=== PATIENT | female | born 1980 | race Caucasian/White ===

== ENCOUNTER → 2020-02-16 | Outpatient (CLI) | payer MEDICARE, OTHER ==
--- NOTE | 2020-02-17 07:57 | US ---
EXAMINATION TYPE: US transvaginal DATE OF EXAM: 02/16/2020 COMPARISON: NONE CLINICAL HISTORY: R10.2 Pelvic and perineal pain. Pain abnormal bleeding. TECHNIQUE: Transvaginal (TV). EXAM MEASUREMENTS: Uterus: 6.4 x 3.1 x cm Endometrial Stripe: .3 cm Right Ovary: 2.8 x 2.2 x 2.4 cm Left Ovary: 3.0 x 2.2 x 1.9 cm 1. Uterus: Anteverted wnl 2. Endometrium: wnl 3. Right Ovary: Follicles seen 4. Left Ovary: Follicles seen. 5. Bilateral Adnexa: wnl 6. Posterior cul-de-sac: wnl Note is made of peripheral based multiple follicles bilaterally. This can be associated with melanoma although not diagnostic of, polycystic ovarian syndrome. IMPRESSION: 1. Normal pelvic ultrasound. 2. Consider polycystic ovarian syndrome potentially within the differential.
== END | disposition home or self-care (01) ==
LOC: RADUSWWP 15:34
PROVIDERS: ATTEND Family Medicine
DX: E28.2 Polycystic ovarian syndrome (principal)
CPT/HCPCS: 76830

== ENCOUNTER → 2021-01-18 | Outpatient (CLI) | payer MEDICARE, OTHER ==
--- NOTE | 2021-01-24 12:21 | MM ---
Reason for exam: screening (asymptomatic). Last mammogram was performed 6 years and 5 months ago. History: Family history of breast cancer in paternal cousin. Took hormonal contraceptives for 7 years. Physical Findings: A clinical breast exam by your physician is recommended on an annual basis and results should be correlated with mammographic findings. MG 3D Screening Mammo W/Cad Bilateral CC and MLO view(s) were taken. Prior study comparison: August 24, 2014, mammogram. There are scattered fibroglandular densities. ASSESSMENT: Benign, BI-RAD 2 RECOMMENDATION: Routine screening mammogram of both breasts in 1 year.
== END | disposition home or self-care (01) ==
LOC: RADMAMWWP 11:25
PROVIDERS: ATTEND Family Medicine
DX: Z12.31 Encounter for screening mammogram for malignant neoplasm of breast (principal); Z80.3 Family history of malignant neoplasm of breast
CPT/HCPCS: 77063; 77067

== ENCOUNTER → 2021-10-02 | Outpatient (CLI) | payer MEDICARE, OTHER ==
--- NOTE | 2021-10-02 14:50 | MR ---
PRE AND POSTCONTRAST ENHANCED MRI OF THE BRAIN: CLINICAL HISTORY: tremors, uncontrolled movement CONTRAST: 10ml gadavist Multiplanar and multispin-echo imaging of the brain was performed both before and after the administr ation of contrast. The ventricles, basal cisterns and sulci overlying the cerebral convexities are within normal limits. There is no evidence for midline shift or mass effect. Acute intracranial hemorrhage or extra-axial collection is not evident. There are no abnormal areas of increased or decreased signal intensity within the brain parenchyma. Following contrast administration, there is no evidence for pathologic enhancement or enhancing mass. The paranasal sinuses and mastoid air cells are well-aerated. IMPRESSION: Unremarkable pre and postcontrast enhanced MRI of the brain.
== END | disposition home or self-care (01) ==
LOC: RADMRIMAIN 13:07
PROVIDERS: ATTEND Psychiatry & Neurology Neurology
DX: C71.9 Malignant neoplasm of brain, unspecified (principal); G40.009 Localization-related (focal) (partial) idiopathic epilepsy and epileptic syndromes with seizures of localized onset, not intractable, without status epilepticus
CPT/HCPCS: 70553; A9585

== ENCOUNTER 2022-10-12 11:00 | Emergency (ER) | payer OTHER, MEDICARE ==
[2022-10-12 11:09] VITALS: BP 136/81; PULSE 80; RESP 20; TEMP 98.3
[2022-10-12] MEDS ORDERED: KETOROLAC 15 MG/ML 1 ML VIAL IM STA (11:19)
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
== END 2022-10-12 13:08 | disposition home or self-care (01) ==
LOC: EC 11:00
DX: M79.601 Pain in right arm (principal); F32.A Depression, unspecified; Z88.8 Allergy status to other drugs, medicaments and biological substances; V43.62XA Car passenger injured in collision with other type car in traffic accident, initial encounter
CPT/HCPCS: 72070; 72050; 72100; 73030; 71045; 99284; 96372; J1885

== ENCOUNTER 2023-06-24 18:03 | Emergency (ER) | payer MEDICARE, OTHER ==
--- NOTE | 2023-06-24 18:43 | ED ---
URI HPI - General Source: patient, RN notes reviewed Mode of arrival: ambulatory Limitations: no limitations <Rita Chavarria - Last Filed: 06/24/23 18:43> - General Source: RN notes reviewed, old records reviewed Mode of arrival: ambulatory Limitations: no limitations - History of Present Illness MD Complaint: fever, cough, nasal congestion, sinus pain -: days(s) Severity: moderate Severity scale (1-10): 4 Consistency: constant Improves With: nothing Worsens With: nothing Context: sick contacts, recent travel Associated Symptoms: fever, chills, myalgias, rhinorrhea, nasal congestion Treatments Prior to Arrival: none <All Hernandez - Last Filed: 06/28/23 18:04> - General Chief Complaint: Upper Respiratory Infection Stated Complaint: Cough, Fever Time Seen by Provider: 06/24/23 18:43 - History of Present Illness Initial Comments: Patient is a 42-year-old female who presents to the emergency department for upper respiratory symptoms (Rita Chavarria) This is a 42-year-old female to the emergency department today for evaluation of cough congestion runny nose not feeling well and fever. Patient has no current chest pain no travel history no sick contacts no leg swelling or edema. (All Hernandez) - Related Data Home Medications Medication Instructions Recorded Confirmed Citalopram Hydrobromide [CeleXA] 20 mg PO HS 03/01/14 03/03/14 HYDROmorphone HCL [Dilaudid] 4 mg PO BID PRN 03/01/14 03/01/14 Loratadine [Claritin] 10 mg PO DAILY 03/01/14 03/01/14 Montelukast [Singulair] 10 mg PO HS 03/01/14 03/03/14 Ranitidine HCl [Zantac] 150 mg PO DAILY 03/01/14 03/03/14 Tolterodine ER [Detrol LA] 4 mg PO ONCE 03/01/14 03/03/14 norethindrone ac-eth estradioL 1 tab PO HS 03/01/14 03/03/14 [Microgestin] Allergies Allergy/AdvReac Type Severity Reaction Status Date / Time venlafaxine HCl Allergy Rash/Hives Verified 06/24/23 18:40 [From Effexor] amitriptyline HCl AdvReac states med Verified 06/24/23 18:40 [From Elavil] contributed to left leg amputation diphenhydramine HCl AdvReac Rapid Verified 06/24/23 18:40 [From Benadryl] Heart Rate pseudoephedrine HCl AdvReac Rapid Verified 06/24/23 18:40 [From Sudafed] Heart Rate Review of Systems ROS Other: All systems not noted in ROS Statement are negative. <Rita Chavarria - Last Filed: 06/24/23 18:43> ROS Other: All systems not noted in ROS Statement are negative. <All Hernandez - Last Filed: 06/28/23 18:04> ROS Statement: Those systems with pertinent positive or pertinent negative responses have been documented in the HPI. 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 HAS PROTHESIS FOR LEFT LEG. HAS BEEN WHEEZING SINCE LAST FALL -NO OTHER SYMPTOMS WITH THE WHEEZING History of Any Multi-Drug Resistant Organisms: None Reported Additional Past Surgical History / Comment(s): 04/2009-AMPUTATION LT LEG Past Anesthesia/Blood Transfusion Reactions: Motion Sickness Past Psychological History: Depression Smoking Status: Never smoker Past Alcohol Use History: Rare Past Drug Use History: None Reported <Rita Chavarria - Last Filed: 06/24/23 18:43> General Exam Limitations: no limitations <Rita Chavarria - Last Filed: 06/24/23 18:43> General appearance: alert, in no apparent distress, anxious Head exam: Present: atraumatic, normocephalic, normal inspection Eye exam: Present: normal appearance, PERRL, EOMI. Absent: scleral icterus, conjunctival injection, periorbital swelling ENT exam: Present: normal exam, mucous membranes moist Neck exam: Present: normal inspection. Absent: tenderness, meningismus, lymphadenopathy Respiratory exam: Present: normal lung sounds bilaterally. Absent: respiratory distress, wheezes, rales, rhonchi, stridor Cardiovascular Exam: Present: regular rate, normal rhythm, normal heart sounds. Absent: systolic murmur, diastolic murmur, rubs, gallop, clicks GI/Abdominal exam: Present: soft, normal bowel sounds. Absent: distended, tenderness, guarding, rebound, rigid Extremities exam: Present: normal inspection, full ROM, normal capillary refill. Absent: tenderness, pedal edema, joint swelling, calf tenderness Back exam: Present: normal inspection Neurological exam: Present: alert, oriented X3, CN II-XII intact Psychiatric exam: Present: normal affect, normal mood Skin exam: Present: warm, dry, intact, normal color. Absent: rash <All Hernandez - Last Filed: 06/28/23 18:04> - General Exam Comments Initial Comments: Visual Physical Exam Vital signs reviewed General: Well-appearing, nontoxic, no acute distress. Head: Normocephalic, atraumatic Eyes: PERRLA, EOMI ENT: Airway patent Chest: Nonlabored breathing Skin: No visual rash, normal skin tone Neuro: Alert and oriented 3 Musculoskeletal: No gross abnormalities (Rita Chavarria) Course <All Hernandez - Last Filed: 06/28/23 18:04> Vital Signs 06/24/23 06/24/23 18:36 20:12 Temperature 98.8 F 99.3 F Pulse Rate 89 106 H Respiratory 17 16 Rate Blood Pressure 112/70 132/76 O2 Sat by Pulse 99 96 Oximetry - Reevaluation(s) Reevaluation #1: 06/24/23 Medical record is reviewed (All Hernandez) Reevaluation #2: 06/24/23 Patient has Informed results questions answered (All Hernandez) Reevaluation #3: 06/24/23 Patient symptoms are improving here in the ER (All Hernandez) Reevaluation #4: Was pt. sent in by a medical professional or institution (, PA, MANAGER REVIEW, urgent care, hospital, or intermediate...) When possible be specific @ -no Did you speak to anyone other than the patient for history (EMS, parent, family, police, friend...)? What history was obtained from this source @ -no Did you review nursing and triage notes (agree or disagree)? Why? @ -agree Are old charts reviewed (outside hosp., previous admission, EMS record, old EKG, old radiological studies, urgent care reports/EKG's, intermediate records)? Report findings @ -yes Differential Diagnosis (chest pain, altered mental status, abdominal pain women, abdominal pain men, vaginal bleeding, weakness, fever, dyspnea, syncope, headache, dizziness, GI bleed, back pain, seizure, CVA, palpatations, mental health, musculoskeletal)? @ -prior EKG interpreted by me (3pts min.). @ -no X-rays interpreted by me (1pt min.). @ -yes CT interpreted by me (1pt min.). @ -no U/S interpreted by me (1pt. min.). @ -no What testing was considered but not performed or refused? (CT, X-rays, U/S, labs)? Why? @ -none What meds were considered but not given or refused? Why? @ -none Did you discuss the management of the patient with other professionals (professionals i.e. , PA, MANAGER REVIEW, lab, RT, psych nurse, forensic social worker, paper carrier, teacher, community reinvestment act officer, case packer and sealer)? Give summary @ -no Was smoking cessation discussed for >3mins.? @ -no Was critical care preformed (if so, how long)? @ -no Were there social determinants of health that impacted care today? How? (Homelessness, low income, unemployed, alcoholism, drug addiction, transportation, low edu. Level, literacy, decrease access to med. care, halfway, rehab)? @ -none Was there de-escalation of care discussed even if they declined (Discuss DNR or withdrawal of care, Hospice)? DNR status @ -no What co-morbidities impacted this encounter? (DM, HTN, Smoking, COPD, CAD, Cancer, CVA, ARF, Chemo, Hep., AIDS, mental health diagnosis, sleep apnea, morbid obesity)? @ -none Was patient admitted / discharged? Hospital course, mention meds given and route, prescriptions, significant lab abnormalities, going to OR and other pertinent info. @ - 42 female positive for coronavirus here in the ER, feeling well here in the ER can be discharged home Discharge Undiagnosed new problem with uncertain prognosis? @ -no Drug Therapy requiring intensive monitoring for toxicity (Heparin, Nitro, Insulin, Cardizem)? @ -no Were any procedures done? @ -no Diagnosis/symptom? @ -Coronavirus Acute, or Chronic, or Acute on Chronic? @ -Acute Uncomplicated (without systemic symptoms) or Complicated (systemic symptoms)? @ -Complicated Side effects of treatment? @ -no Exacerbation, Progression, or Severe Exacerbation? @ -exacerbation Poses a threat to life or bodily function? How? (Chest pain, [place], [place], pneumonia, PE, COPD, DKA, ARF, appy, cholecystitis, CVA, Diverticulitis, Homicidal, Suicidal, threat to staff... and all critical care pts) @ -yes with significant coronavirus (All Hernandez) Reevaluation #5: Differential Fever: Pneumonia, viral URI, endocarditis, myocarditis, pericarditis, otitis, sinusitis, peritonsillar Abscess, retropharyngeal Abscess, epiglottitis, peritonitis, appendicitis, Mary cystitis, diverticulitis, hepatitis, colitis, UTI, PID, TOA, pyelonephritis, prostatitis, epididymitis, meningitis, encephalitis, pulmonary embolism, CVA, thyroid storm, pancreatitis, adrenal crisis, cavernous sinus thrombosis, this is not meant to be an all-inclusive list. (All Hernandez) Medical Decision Making <Rita Chavarria - Last Filed: 06/24/23 18:43> - Radiology Data Radiology results: report reviewed (Chest x-rays negative for acute disease), image reviewed <All Hernandez - Last Filed: 06/28/23 18:04> - Medical Decision Making I performed the QuickNote portion of this chart - Rita Chavarria PA-C (Rita Chavarria) 42 female to the emergency department for evaluation. Patient positive for coronavirus, otherwise feels well here in the ER no distress and can be discharged home (All Hernandez) - Lab Data Lab Results 06/24/23 Range/Units 18:42 Influenza Type A (PCR) Not Detected (Not Detectd) Influenza Type B (PCR) Not Detected (Not Detectd) RSV (PCR) Not Detected (Not Detectd) SARS-CoV-2 (PCR) Detected A (Not Detectd) Disposition <Rita Chavarria - Last Filed: 06/24/23 18:43> Is patient prescribed a controlled substance at d/c from ED?: No Time of Disposition: 19:45 <All Hernandez - Last Filed: 06/28/23 18:04> Clinical Impression: Fever, 2019 novel coronavirus detected, Coronavirus infection Disposition: HOME SELF-CARE Condition: Fair Instructions (If sedation given, give patient instructions): Coronavirus Disease 2019 (COVID-19) Referrals: Kelly Salazar [Primary Care Provider] - 1-2 days
--- NOTE | 2023-06-24 18:58 | XR ---
EXAMINATION TYPE: XR chest 2V DATE OF EXAM: 06/24/2023 COMPARISON: 10/12/2022 INDICATION: Upper respiratory symptoms, fever TECHNIQUE: Frontal and lateral views of the chest are obtained. FINDINGS: The heart size is normal. The pulmonary vasculature is normal. The lungs are clear. IMPRESSION: 1. No acute pulmonary process.
[2023-06-24] MEDS ORDERED: ACETAMINOPHEN TAB 500 MG TAB PO STA (19:42)
[2023-06-24] MEDS ORDERED: IBUPROFEN 800 MG TAB PO STA (19:42)
[2023-06-24] MEDS ORDERED: dexAMETHasone 2 MG TAB PO STA (19:42)
[2023-06-24 20:18] VITALS: BP 132/76; PULSE 106; RESP 16; TEMP 99.3
== END 2023-06-24 20:14 | disposition home or self-care (01) ==
LOC: EC 18:03
DX: U07.1 COVID-19 (principal); F32.A Depression, unspecified; Z88.8 Allergy status to other drugs, medicaments and biological substances; Z79.899 Other long term (current) drug therapy
CPT/HCPCS: 87636; 71046; 99283; J8540

== ENCOUNTER 2024-08-29 14:49 | Emergency (ER) | payer MEDICARE, OTHER ==
[2024-08-29 15:04] VITALS: RESP 20
--- NOTE | 2024-08-29 15:25 | ED ---
URI HPI - General Chief Complaint: Upper Respiratory Infection Stated Complaint: fever/cough/chills Time Seen by Provider: 08/29/24 15:03 Source: patient, RN notes reviewed Mode of arrival: wheelchair Limitations: no limitations - History of Present Illness Initial Comments: 44-year-old female presents emergency department with chief complaint of fever c ough congestion and bodyaches. She had some sinus congestion for last week but over the last day she has developed fever, worsening cough minimally productive sore throat and severe body aches. She denies any sick contacts denies any nausea vomit diarrhea constipation. - Related Data Home Medications Medication Instructions Recorded Confirmed Citalopram Hydrobromide [CeleXA] 20 mg PO HS 03/01/14 03/03/14 HYDROmorphone HCL [Dilaudid] 4 mg PO BID PRN 03/01/14 03/01/14 Loratadine [Claritin] 10 mg PO DAILY 03/01/14 03/01/14 Montelukast [Singulair] 10 mg PO HS 03/01/14 03/03/14 Ranitidine HCl [Zantac] 150 mg PO DAILY 03/01/14 03/03/14 Tolterodine ER [Detrol LA] 4 mg PO ONCE 03/01/14 03/03/14 norethindrone ac-eth estradioL 1 tab PO HS 03/01/14 03/03/14 [Microgestin] Allergies Allergy/AdvReac Type Severity Reaction Status Date / Time venlafaxine HCl Allergy Rash/Hives Verified 08/29/24 14:58 [From Effexor] amitriptyline HCl AdvReac states med Verified 08/29/24 14:58 [From Elavil] contributed to left leg amputation diphenhydramine HCl AdvReac Rapid Verified 08/29/24 14:58 [From Benadryl] Heart Rate pseudoephedrine HCl AdvReac Rapid Verified 08/29/24 14:58 [From Sudafed] Heart Rate Review of Systems ROS Statement: Those systems with pertinent positive or pertinent negative responses have been documented in the HPI. ROS Other: All systems not noted in ROS Statement are negative. 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 HAS PROTHESIS FOR LEFT LEG. HAS BEEN WHEEZING SINCE LAST FALL -NO OTHER SYMPTOMS WITH THE WHEEZING History of Any Multi-Drug Resistant Organisms: None Reported Additional Past Surgical History / Comment(s): 04/2009-AMPUTATION LT LEG Past Anesthesia/Blood Transfusion Reactions: Motion Sickness Past Psychological History: Depression Smoking Status: Never smoker Past Alcohol Use History: Rare Past Drug Use History: None Reported General Exam Limitations: no limitations General appearance: alert, in no apparent distress Head exam: Present: atraumatic, normocephalic, normal inspection Eye exam: Present: normal appearance, PERRL, EOMI. Absent: scleral icterus, conjunctival injection, periorbital swelling ENT exam: Present: normal exam, normal oropharynx, mucous membranes moist Neck exam: Present: normal inspection, full ROM. Absent: tenderness, meningismus, lymphadenopathy Respiratory exam: Present: normal lung sounds bilaterally. Absent: respiratory distress, wheezes, rales, rhonchi, stridor Cardiovascular Exam: Present: normal rhythm, tachycardia, normal heart sounds. Absent: systolic murmur, diastolic murmur, rubs, gallop, clicks GI/Abdominal exam: Present: soft, normal bowel sounds. Absent: distended, tenderness, guarding, rebound, rigid Course Vital Signs 08/29/24 08/29/24 08/29/24 14:59 15:12 15:44 Temperature 100.6 F H 99.5 F Pulse Rate 111 H 101 H Respiratory 20 20 Rate Blood Pressure 114/65 O2 Sat by Pulse 96 Oximetry Medical Decision Making - Medical Decision Making Was pt. sent in by a medical professional or institution (, PA, ASSOCIATE PRODUCER, urgent c are, hospital, or long term...) When possible be specific @ -No Did you speak to anyone other than the patient for history (EMS, parent, family, police, friend...)? What history was obtained from this source @ -No Did you review nursing and triage notes (agree or disagree)? Why? @ -I reviewed and agree with nursing and triage notes Were old charts reviewed (outside hosp., previous admission, EMS record, old EKG, old radiological studies, urgent care reports/EKG's, long term records)? Report findings @ -No old charts were reviewed Differential Diagnosis (chest pain, altered mental status, abdominal pain women, abdominal pain men, vaginal bleeding, weakness, fever, dyspnea, syncope, headache, dizziness, GI bleed, back pain, seizure, CVA, palpatations, mental health, musculoskeletal)? @ -COVID 19, RSV, influenza, pneumonia, acute bronchitis, URI, this list is not all inclusive EKG interpreted by me (3pts min.). @ -None X-rays interpreted by me (1pt min.). @ -X-ray shows no acute cardiopulmonary process CT interpreted by me (1pt min.). @ -None done U/S interpreted by me (1pt. min.). @ -None done What testing was considered but not performed or refused? (CT, X-rays, U/S, labs)? Why? @ -None What meds were considered but not given or refused? Why? @ -None Did you discuss the management of the patient with other professionals (professionals i.e. , PA, ASSOCIATE PRODUCER, lab, RT, psych nurse, clinical social worker, handle sander operator, teacher, traffic officer, pillowcase sewer)? Give summary @ -No Was smoking cessation discussed for >3mins.? @ -No Was critical care preformed (if so, how long)? @ -No Were there social determinants of health that impacted care today? How? (Homelessness, low income, unemployed, alcoholism, drug addiction, transportation, low edu. Level, literacy, decrease access to med. care, detention, rehab)? @ -No Was there de-escalation of care discussed even if they declined (Discuss DNR or withdrawal of care, Hospice)? DNR status @ -No What co-morbidities impacted this encounter? (DM, HTN, Smoking, COPD, CAD, Cancer, CVA, ARF, Chemo, Hep., AIDS, mental health diagnosis, sleep apnea, morbid obesity)? @ -None Was patient admitted / discharged? Hospital course, mention meds given and route, prescriptions, significant lab abnormalities, going to OR and other pertinent info. @ -Discharge patient is influenza A positive. Patient discharged in stable condition return parens discussed. Undiagnosed new problem with uncertain prognosis? @ -No Drug Therapy requiring intensive monitoring for toxicity (Heparin, Nitro, Insulin, Cardizem)? @ -No Were any procedures done? @ -No Diagnosis/symptom? @ -Influenza A Acute, or Chronic, or Acute on Chronic? @ -Acute Uncomplicated (without systemic symptoms) or Complicated (systemic symptoms)? @ -Uncomplicated Side effects of treatment? @ -No Exacerbation, Progression, or Severe Exacerbation? @ -No Poses a threat to life or bodily function? How? (Chest pain, [place], [place], pneumonia, PE, COPD, DKA, ARF, appy, cholecystitis, CVA, Diverticulitis, Homicidal, Suicidal, threat to staff... and all critical care pts) @ -No - Lab Data Lab Results 08/29/24 08/29/24 Range/Units 15:15 15:15 Influenza Type A (PCR) Detected A (Not Detectd) Influenza Type B (PCR) Not Detected (Not Detectd) RSV (PCR) Not Detected (Not Detectd) SARS-CoV-2 (PCR) Not Detected (Not Detectd) Group A Strep (PCR) NOT DETECTED (Not Detectd) Disposition Clinical Impression: Influenza A Disposition: HOME SELF-CARE Condition: Stable Instructions (If sedation given, give patient instructions): Influenza (ED) Additional Instructions: Please return to the Emergency Department if symptoms worsen or any other concerns. Is patient prescribed a controlled substance at d/c from ED?: No Referrals: Nonstaff,Physician [REFERRING] - 1-2 days Time of Disposition: 15:57
[2024-08-29] MEDS: ACETAMINOPHEN TAB 500 MG TAB PO STA (15:28)
[2024-08-29] MEDS: IBUPROFEN 600 MG TAB PO STA (15:29)
--- NOTE | 2024-08-29 15:36 | XR ---
EXAMINATION TYPE: XR chest 2V DATE OF EXAM: 08/29/2024 3:27 PM COMPARISON: Chest radiographs from 06/24/2023 CLINICAL INDICATION: Female, 44 years old with history of fever; TECHNIQUE: XR chest 2V Frontal and lateral views of the chest. FINDINGS: Lungs/Pleura: There is no evidence of pleural effusion, focal consolidation, or pneumothorax. Pulmonary vascularity: Unremarkable. Heart/mediastinum: Cardiomediastinal silhouette is unremarkable. Musculoskeletal: No acute osseous pathology. IMPRESSION: No acute cardiopulmonary disease/process. [facility], , 08/29/2024 3:34 PM
[2024-08-29 15:55] VITALS: PULSE 101; TEMP 99.5
[2024-08-29 16:08] VITALS: BP 118/76
== END 2024-08-29 16:09 | disposition home or self-care (01) ==
LOC: EC 14:49
DX: J10.1 Influenza due to other identified influenza virus with other respiratory manifestations (principal); Z88.8 Allergy status to other drugs, medicaments and biological substances
CPT/HCPCS: 71046; 87636; 87651; 99283

== ENCOUNTER 2024-10-10 13:40 | Emergency (ER) | payer MEDICARE ==
--- NOTE | 2024-10-10 14:31 | XR ---
EXAMINATION TYPE: XR chest 2V DATE OF EXAM: 10/10/2024 2:14 PM COMPARISON: Chest radiograph 08/27/2024. CLINICAL INDICATION: Female, 44 years old with history of cough; [facility] TECHNIQUE: XR chest 2V Frontal and lateral views of the chest. FINDINGS: Lungs/Pleura: There is no evidence of pleural effusion, focal consolidation, or pneumothorax. Pulmonary vascularity: Unremarkable. Heart/mediastinum: Cardiomediastinal silhouette is unremarkable. Musculoskeletal: No acute osseous pathology. Other findings: None IMPRESSION: No acute cardiopulmonary disease/process. [facility], , 10/10/2024 2:29 PM
[2024-10-10 14:44] VITALS: RESP 18
--- NOTE | 2024-10-10 14:49 | ED ---
URI HPI - General Chief Complaint: Upper Respiratory Infection Stated Complaint: Flu like symptoms Time Seen by Provider: 10/10/24 13:54 Source: patient, RN notes reviewed Mode of arrival: wheelchair Limitations: no limitations - History of Present Illness Initial Comments: This is a 44-year-old female presenting with sick symptoms x 5 days. Endorses f ever, chills, sweating, dry cough, congestion, sore throat (7/10). Denies recent sick contacts. Endorses use of Tylenol/Motrin, NyQuil lozenges with minimal relief. Denies significant dyspnea, chest pain, abdominal pain, N/V/D. MD Complaint: fever, cough, sore throat, rhinorrhea, nasal congestion Onset/Timin -: days(s) Severity scale (1-10): 7 Consistency: constant Improves With: nothing Worsens With: nothing Associated Symptoms: fever, chills, diaphoresis Treatments Prior to Arrival: Acetaminophen, Ibuprofen, "cold medicine" - Related Data Home Medications Medication Instructions Recorded Confirmed Citalopram Hydrobromide [CeleXA] 20 mg PO HS 03/01/14 03/03/14 HYDROmorphone HCL [Dilaudid] 4 mg PO BID PRN 03/01/14 03/01/14 Loratadine [Claritin] 10 mg PO DAILY 03/01/14 03/01/14 Montelukast [Singulair] 10 mg PO HS 03/01/14 03/03/14 Ranitidine HCl [Zantac] 150 mg PO DAILY 03/01/14 03/03/14 Tolterodine ER [Detrol LA] 4 mg PO ONCE 03/01/14 03/03/14 norethindrone ac-eth estradioL 1 tab PO HS 03/01/14 03/03/14 [Microgestin] Allergies Allergy/AdvReac Type Severity Reaction Status Date / Time venlafaxine HCl Allergy Rash/Hives Verified 10/10/24 13:44 [From Effexor] amitriptyline HCl AdvReac states med Verified 10/10/24 13:44 [From Elavil] contributed to left leg amputation diphenhydramine HCl AdvReac Rapid Verified 10/10/24 13:44 [From Benadryl] Heart Rate pseudoephedrine HCl AdvReac Rapid Verified 10/10/24 13:44 [From [facility]] Heart Rate Review of Systems ROS Statement: Those systems with pertinent positive or pertinent negative responses have been documented in the HPI. ROS Other: All systems not noted in ROS Statement are negative. 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 HAS PROTHESIS FOR LEFT LEG. HAS BEEN WHEEZING SINCE LAST FALL -NO OTHER SYMPTOMS WITH THE WHEEZING History of Any Multi-Drug Resistant Organisms: None Reported Additional Past Surgical History / Comment(s): 04/2009-AMPUTATION LT LEG Past Anesthesia/Blood Transfusion Reactions: Motion Sickness Past Psychological History: Depression Smoking Status: Never smoker Past Alcohol Use History: Rare Past Drug Use History: None Reported General Exam Limitations: no limitations General appearance: alert, in no apparent distress Head exam: Present: atraumatic, normocephalic, normal inspection Eye exam: Present: normal appearance, PERRL, EOMI. Absent: scleral icterus, conjunctival injection, periorbital swelling ENT exam: Present: normal exam, mucous membranes moist Neck exam: Present: normal inspection. Absent: tenderness, meningismus, lymphadenopathy Respiratory exam: Present: wheezes, rhonchi, decreased breath sounds, prolonged expiratory. Absent: respiratory distress, rales, stridor Cardiovascular Exam: Present: regular rate, normal rhythm, normal heart sounds. Absent: systolic murmur, diastolic murmur, rubs, gallop, clicks GI/Abdominal exam: Present: soft, normal bowel sounds. Absent: distended, tenderness, guarding, rebound, rigid Extremities exam: Present: normal inspection, full ROM, normal capillary refill. Absent: tenderness, pedal edema, joint swelling, calf tenderness Back exam: Present: normal inspection Neurological exam: Present: alert, oriented X3, CN II-XII intact Psychiatric exam: Present: normal affect, normal mood Skin exam: Present: warm, dry, intact, normal color. Absent: rash Course Vital Signs 10/10/24 10/10/24 10/10/24 13:41 14:43 15:00 Temperature 99.7 F H 100.1 F H Pulse Rate 92 Respiratory 16 18 Rate Blood Pressure 115/62 O2 Sat by Pulse 96 Oximetry 10/10/24 10/10/24 15:20 15:28 Temperature Pulse Rate 78 82 Respiratory Rate Blood Pressure O2 Sat by Pulse Oximetry Medical Decision Making - Medical Decision Making Was pt. sent in by a medical professional or institution (CONRADO Beyer, INSTRUMENT ADJUSTER, urgent care, hospital, or longterm...) When possible be specific @ -[No] Did you speak to anyone other than the patient for history (EMS, parent, family, police, friend...)? What history was obtained from this source @ -[No] Did you review nursing and triage notes (agree or disagree)? Why? @ -[I reviewed and agree with nursing and triage notes] Were old charts reviewed (outside hosp., previous admission, EMS record, old EKG, old radiological studies, urgent care reports/EKG's, longterm records)? Report findings @ -[No old charts were reviewed] Differential Diagnosis (chest pain, altered mental status, abdominal pain women, abdominal pain men, vaginal bleeding, weakness, fever, dyspnea, syncope, headache, dizziness, GI bleed, back pain, seizure, CVA, palpatations, mental health, musculoskeletal)? @ -Differential Fever: Pneumonia, viral URI, endocarditis, myocarditis, pericarditis, otitis, sinusitis, peritonsillar Abscess, retropharyngeal Abscess, epiglottitis, peritonitis, appendicitis, Mary cystitis, diverticulitis, hepatitis, colitis, UTI, PID, TOA, pyelonephritis, prostatitis, epididymitis, meningitis, encephalitis, pulmonary embolism, CVA, thyroid storm, pancreatitis, adrenal crisis, cavernous sinus thrombosis, this is not meant to be an all-inclusive li st. EKG interpreted by me (3pts min.). @ -Not done X-rays interpreted by me (1pt min.). @ -CXR shows no acute cardiopulmonary process CT interpreted by me (1pt min.). @ -[None done] U/S interpreted by me (1pt. min.). @ -[None done] What testing was considered but not performed or refused? (CT, X-rays, U/S, labs)? Why? @ -[None] What meds were considered but not given or refused? Why? @ -[None] Did you discuss the management of the patient with other professionals (professionals i.e. CONRADO Beyer, INSTRUMENT ADJUSTER, lab, RT, psych nurse, social service director, medical staff director, teacher, officer captain, manager case)? Give summary @ -[No] Was smoking cessation discussed for >3mins.? @ -[No] Was critical care preformed (if so, how long)? @ -[No] Were there social determinants of health that impacted care today? How? (Homelessness, low income, unemployed, alcoholism, drug addiction, transportation, low edu. Level, literacy, decrease access to med. care, retirement, rehab)? @ -[No] Was there de-escalation of care discussed even if they declined (Discuss DNR or withdrawal of care, Hospice)? DNR status @ -[No] What co-morbidities impacted this encounter? (DM, HTN, Smoking, COPD, CAD, Cancer, CVA, ARF, Chemo, Hep., AIDS, mental health diagnosis, sleep apnea, morbid obesity)? @ -[None] Was patient admitted / discharged? Hospital course, mention meds given and route, prescriptions, significant lab abnormalities, going to OR and other pertinent info. @ -[hospital course] Undiagnosed new problem with uncertain prognosis? @ -[No] Drug Therapy requiring intensive monitoring for toxicity (Heparin, Nitro, Insulin, Cardizem)? @ -[No] Were any procedures done? @ -[No] Diagnosis/symptom? @ -[default] Acute, or Chronic, or Acute on Chronic? @ -Acute Uncomplicated (without systemic symptoms) or Complicated (systemic symptoms)? @ -Complicated Side effects of treatment? @ -[No] Exacerbation, Progression, or Severe Exacerbation? @ -[No] Poses a threat to life or bodily function? How? (Chest pain, [place], [place], pneumonia, PE, COPD, DKA, ARF, appy, cholecystitis, CVA, Diverticulitis, Homicidal, Suicidal, threat to staff... and all critical care pts) @ -[No] - Lab Data Lab Results 10/10/24 Range/Units 13:45 Influenza Type A (PCR) Not Detected (Not Detectd) Influenza Type B (PCR) Not Detected (Not Detectd) RSV (PCR) Not Detected (Not Detectd) SARS-CoV-2 (PCR) Not Detected (Not Detectd) Disposition Clinical Impression: Acute upper respiratory infection Disposition: HOME SELF-CARE Condition: Good Instructions (If sedation given, give patient instructions): Upper Respiratory Infection (ED) Is patient prescribed a controlled substance at d/c from ED?: No Referrals: None,Stated [REFERRING] - 1-2 days Time of Disposition: 15:32
[2024-10-10] MEDS: methylPREDNISolone SOD SUCCI 125 MG/2 ML VIAL IM ONE (14:57)
[2024-10-10 15:01] LABS: Influenza A Not Detected (Not Detectd); Influenza B Not Detected (Not Detectd); RSV Not Detected (Not Detectd)
[2024-10-10] MEDS: IPRATROPIUM-ALBUTEROL 3 ML NEB INHALATION STA (15:20)
[2024-10-10 16:01] VITALS: BP 121/77; PULSE 96; TEMP 98.1
== END 2024-10-10 16:00 | disposition home or self-care (01) ==
LOC: EC 13:40
DX: J06.9 Acute upper respiratory infection, unspecified (principal); Z88.8 Allergy status to other drugs, medicaments and biological substances
CPT/HCPCS: 94640; 87636; 71046; 99283; 96372; J2919